=== PATIENT | female | born 1995 | race African-American/Black ===

== ENCOUNTER 2019-11-09 20:30 | Emergency (ER) | payer OTHER ==
[~2019-11-09] VITALS: Ht 170.2 cm; Wt 68.0 kg
[2019-11-09] MEDS ORDERED: PROZAC20 MG PO (20:47)
[2019-11-09 21:52] VITALS: BP 123/70
[2019-11-09 22:07] LABS: URINE BILIRUBIN NEGATIVE (Negative); URINE BLOOD TRACE (Negative); URINE CLARITY CLEAR; URINE COLOR YELLOW; URINE GLUCOSE-RANDOM NEGATIVE (Negative); URINE KETONES NEGATIVE (Negative); URINE LEUKOCYTES-REFLEX 1+ (Negative); URINE NITRITE-REFLEX NEGATIVE (Negative); URINE PROTEIN NEGATIVE (Negative); URINE SPECIFIC GRAVITY >= 1.030 (1.005-1.030); URINE UROBILINOGEN 0.2 E.U./dl (0.2-1.0)
[2019-11-09 22:09] LABS: MUCUS None Seen strn/LPF (None Seen); SQUAMOUS >10 Many /LPF (0-3); URINE WBC-REFLEX 6-15 Few /HPF (0-5)
[2019-11-09 22:10] LABS: BACTERIA-REFLEX 1-9 Few /HPF (None Seen); CASTS None Seen /LPF (None Seen); CRYSTALS None Seen /LPF (None Seen); URINE RBC 0-2 Rare /HPF (0-2)
== END 2019-11-09 21:56 | disposition home or self-care (01) ==
LOC: M.ERS 20:30
PROVIDERS: Emergency Medicine
DX: N89.8 Other specified noninflammatory disorders of vagina (principal)